=== PATIENT | female | born 1980 | race Caucasian/White ===

== ENCOUNTER 2020-02-23 16:17 | Emergency (ER) | payer OTHER ==
--- NOTE | 2020-02-23 16:47 | XRAY ---
Indication: Pain following fall. Comparison: None 3 view right knee demonstrates tiny medial condyle bone island and tiny suprapatellar soft tissue calcified granuloma. No other bony, articular, or soft tissue abnormalities.
--- NOTE | 2020-02-23 16:48 | ERPHSYRPT ---
- History of Present Illness Source: patient Exam Limitations: no limitations Patient Subjective Stated Complaint: pt was at work and fell and landed on her right knee causing pain when she twists it in any direction and it also "pops" with every step Triage Nursing Assessment: Pt was brought to the ER by her , chapin alissa, rates knee pain as 2/10, pulses normal, denies any other injuries Physician History: 39-year-old female here for right knee injury. Patient apparently had slipped on a wet surface and twisted her knee as well as landing on that knee as well. No other injuries. Did not fall completely or hit her head. Has twisted her knee in the past which occasionally give her some discomfort. Patient able to ambulate with some discomfort. Method of Injury: twisted Occurred: this morning Quality: constant Severity of Pain-Max: severe Severity of Pain-Current: moderate Lower Extremities Pain: knee: right Modifying Factors: Improves With: movement Associated Symptoms: No unable to bear weight Allergies/Adverse Reactions: No Known Drug Allergies Allergy (Verified 02/23/20 16:32) Home Medications: No Reportable Medications [No Reported Medications] 02/23/20 [History] Travel Risk - International Travel Have you traveled outside of the country in past 3 weeks: No - Coronavirus Screening Are you exhibiting any of the following symptoms?: No Close contact with a COVID-19 positive Pt in past 14-21 Days: No - Review of Systems Constitutional: No Fever, No Chills Eyes: No Symptoms Ears, Nose, & Throat: No Symptoms Respiratory: No Cough, No Dyspnea Cardiac: No Chest Pain, No Edema, No Syncope Abdominal/Gastrointestinal: No Abdominal Pain, No Nausea, No Vomiting, No Diarrhea Genitourinary Symptoms: No Dysuria Musculoskeletal: Injury, Joint Pain, No Back Pain, No Neck Pain Skin: No Rash Neurological: No Dizziness, No Focal Weakness, No Sensory Changes Psychological: No Symptoms Endocrine: No Symptoms All Other Systems: Reviewed and Negative - Past Medical History Endocrine Medical History: Hypothyroidism Musculoskeletal History: Fractures Psycho-Social History: Depression Female Reproductive Disorders: Endometriosis - Past Surgical History Past Surgical History: Yes Female Surgical History: Section - Social History Smoking Status: Current every day smoker Exposure to second hand smoke: Yes Drug Use: none Patient Lives Alone: No - Female History Hx Now: No - Nursing Vital Signs Nursing Vital Signs: Initial Vital Signs Temperature 98.3 F 02/23/20 16:23 Pulse Rate 84 02/23/20 16:23 Blood Pressure 139/90 02/23/20 16:23 O2 Sat by Pulse Oximetry 100 02/23/20 16:23 Pain Scale Pain Intensity 2 - Physical Exam General Appearance: no apparent distress, alert Eyes, Ears, Nose, Throat Exam: moist mucous membranes Neck Exam: non-tender, supple Cardiovascular/Respiratory Exam: chest non-tender, normal breath sounds, regular rate/rhythm, no respiratory distress Gastrointestinal/Abdominal Exam: non-tender, guarding Back Exam: normal inspection, No vertebral tenderness Knees Exam: right knee: pain (Lateral aspect of knee), soft tissue tenderness Neuro/Tendon Exam: normal sensation, normal motor functions Mental Status Exam: alert, oriented x 3, cooperative Skin Exam: normal color, warm, dry SpO2 Interpretation: normal SpO2: 100 - Course Nursing assessment & vital signs reviewed: Yes - Radiology Exams Right Knee X-ray Interpretation: Discussed w/ radiologist, Negative, No Fracture, No Subluxation Ordered Tests: Active Orders 24 hr Category Date Time Status Enrique Bandage Application -[facility] STAT Care 02/23/20 17:09 Ordered KNEE (3 VIEWS) Stat Exams 02/23/20 16:38 Completed - Progress Progress: improved Progress Note: 02/23/20 17:12 Exam fairly benign. There is some tenderness on the lateral aspect of knee. I do not see any deformity or joint effusion. We will x-ray right knee. Radiologist states no new or acute findings of fracture or dislocation. We will Enrique wrap after discussion with patient. She states that she is able to ambulate with very very mild discomfort on the lateral aspect of knee. Patient declines any pain medicine in the ER and also declined crutches as well. Advise follow-up with PCP. Counseled pt/family regarding: diagnosis, need for follow-up, rad results - Departure Departure Disposition: Home Clinical Impression: Right knee sprain Condition: Stable Critical Care Time: No Instructions: Knee Sprain (DC) Additional Instructions: Monitor symptoms closely. Rest. Ice. Enrique wrap or knee brace during the day. Elevation. Aleve or Motrin for pain. Weightbearing as tolerated. Follow-up with your PCP for recheck in a few days. Return to ER if worse. Forms: Work/School Release Form
[2020-02-23 17:19] VITALS: BP 122/77; PULSE 76; O2SAT 98
== END 2020-02-23 17:27 | disposition home or self-care (01) ==
LOC: ED 16:17
DX: S83.421A Sprain of lateral collateral ligament of right knee, initial encounter (principal); W01.0XXA Fall on same level from slipping, tripping and stumbling without subsequent striking against object, initial encounter
CPT/HCPCS: 73562; 99283

== ENCOUNTER 2020-09-10 23:15 | Emergency (ER) | payer MEDICAID, OTHER ==
[2020-09-10 23:32] VITALS: O2SAT 97
--- NOTE | 2020-09-11 00:05 | ERPHSYRPT ---
- History of Present Illness Time Seen by Provider: 09/11/20 00:00 Source: patient, family Exam Limitations: no limitations Patient Subjective Stated Complaint: pt states, "I woke up from sleep with a throbbing, sharp pain to the right side of my head, which felt like I was hit in the head with a baseball bat". Triage Nursing Assessment: pt c/o headache to rt side of head which woke her up from sleep. Pt states, "my head is throbbing, I feel like I've been hit in the head with a baseball bat". No nausea, vomiting, or loc. Physician History: pt had sharp sudden headache awakening from sleep- no hx of head trauma or blood thinners. had 2 relatives with brain aneurysms. discussed risk and benefit of head CT and pt wishes to proceed. no neuro findings on exam and normal mental status and pupils. Timing/Duration: today Quality: sharpness, stabbing, throbbing Head Pain Location: frontal, temporal Severity of Pain-Max: severe Severity of Pain-Current: moderate Recent Head Trauma: no recent headache/trauma, occasional headaches (migraine prior without workup) Associated Symptoms: denies symptoms Previous symptoms: different symptoms, no recent treatment Allergies/Adverse Reactions: No Known Drug Allergies Allergy (Verified 09/10/20 23:44) Home Medications: No Reportable Medications [No Reported Medications] 02/23/20 [History] Hx Tetanus, Diphtheria Vaccination/Date Given: Yes Hx Influenza Vaccination/Date Given: No Hx Pneumococcal Vaccination/Date Given: No Immunizations Up to Date: Yes Travel Risk - International Travel Have you traveled outside of the country in past 3 weeks: No - Coronavirus Screening Are you exhibiting any of the following symptoms?: No Close contact with a COVID-19 positive Pt in past 14-21 Days: No - Vaccine Status Have you recieved a Covid-19 vaccination: No - Review of Systems Constitutional: No Fever, No Chills Eyes: No Symptoms Ears, Nose, & Throat: No Symptoms Respiratory: No Cough, No Dyspnea Cardiac: No Chest Pain, No Edema, No Syncope Abdominal/Gastrointestinal: No Abdominal Pain, No Nausea, No Vomiting, No Diarrhea Genitourinary Symptoms: No Dysuria Musculoskeletal: No Back Pain, No Neck Pain Skin: No Rash Neurological: Headache, No Dizziness, No Focal Weakness, No Sensory Changes Psychological: No Symptoms Endocrine: No Symptoms Hematologic/Lymphatic: No Symptoms Immunological/Allergic: No Symptoms All Other Systems: Reviewed and Negative - Past Medical History Pertinent Past Medical History: Yes Neurological History: Migraines Endocrine Medical History: Hypothyroidism Musculoskeletal History: Fractures Psycho-Social History: Depression Female Reproductive Disorders: Endometriosis - Past Surgical History Past Surgical History: Yes Musculoskeletal: Orthopedic Surgery Female Surgical History: Section, Tubal Ligation - Social History Smoking Status: Current every day smoker How long have you smoked: 20 yrs Exposure to second hand smoke: Yes Drug Use: none Patient Lives Alone: No - Female History Hx Last Menstrual Period: 09/10/20 Hx Now: No - Nursing Vital Signs Nursing Vital Signs: Initial Vital Signs Temperature 98.2 F 09/10/20 23:29 Pulse Rate 79 09/10/20 23:29 Respiratory Rate 18 09/10/20 23:29 Blood Pressure 142/93 09/10/20 23:29 O2 Sat by Pulse Oximetry 97 09/10/20 23:29 Pain Scale Pain Intensity 10 - Physical Exam General Appearance: no apparent distress Eye Exam: PERRL/EOMI Ears, Nose, Throat Exam: normal ENT inspection, moist mucous membranes Neck Exam: normal inspection, supple, full range of motion, No meningismus Respiratory Exam: normal breath sounds, lungs clear Cardiovascular Exam: regular rate/rhythm, normal heart sounds Gastrointestinal/Abdominal Exam: soft, No tenderness, No distention Back Exam: normal inspection, normal range of motion Extremity Exam: normal inspection, normal range of motion Mental Status Exam: alert, oriented x 3, cooperative sledger Exam: normal speech, PERRL, No facial droop Coordination/Gait Exam: normal finger to nose, normal gait, normal cerebellar function Motor/Sensory Exam: no motor deficit, no sensory deficit, no pronator drift DTR Exam: bicep (R): 2+, bicep (L): 2+, tricep (R): 2+, tricep (L): 2+, knee (R): 2+, knee (L): 2+, ankle (R): 2+, ankle (L): 2+ Skin Exam: normal color, warm, dry, No rash SpO2 Interpretation: normal SpO2: 97 O2 Delivery: Room Air - Course Nursing assessment & vital signs reviewed: Yes - CT Exams Head CT Interpretation: Tele-radiologist Report, No/Intracranial Hemorrhag Ordered Tests: Active Orders 24 hr Category Date Time Status IV Insertion STAT Care 09/11/20 00:17 Active NPO (ED) STAT Care 09/11/20 00:10 Active HEAD W/WO CONTRAST [CT] Stat Exams 09/11/20 00:11 Taken CBC W DIFF Stat Lab 09/11/20 00:36 Completed CMP Stat Lab 09/11/20 00:36 Completed Erythrocyte Sedimentation Rate Stat Lab 09/11/20 00:36 Completed HCG QUALITATIVE,SERUM Stat Lab 09/11/20 00:36 Completed Medication Summary Discontinued Medications Generic Name Dose Route Start Last Admin Trade Name Vickey PRN Reason Stop Dose Admin Sodium Chloride 1,000 mls @ 999 mls/hr 09/11/20 00:17 09/11/20 00:39 Sodium Chloride 0.9% 1000 Ml IV 09/11/20 01:17 999 mls/hr .Q1H1M STA Administration Sodium Chloride Confirm 09/11/20 00:38 Sodium Chloride 0.9% 1000 Ml Administered 09/11/20 00:39 Dose 1,000 mls @ ud .ROUTE .[facility] Lab/Rad Data: Laboratory Result Diagrams 09/11/20 00:36 09/11/20 00:36 Laboratory Results 09/11/20 09/11/20 09/11/20 Range/Units 00:36 00:36 00:36 WBC 9.6 (4.0-10.5) K/mm3 RBC 3.98 L (4.1-5.4) M/mm3 Hgb 13.1 (12.0-16.0) gm/dl Hct 39.3 (35-47) % MCV 98.7 (78-100) fl MCH 32.9 H (26-32) pg MCHC 33.3 (32-36) g/dl RDW 12.5 (11.5-14.0) % Plt Count 223 (150-450) K/mm3 MPV 9.5 (7.5-11.0) fl Gran % 60.1 (36.0-66.0) % Eos # (Auto) 0.18 (0-0.5) Absolute Lymphs (auto) 2.70 (1.0-4.6) Absolute Monos (auto) 0.91 (0.0-1.3) Lymphocytes % 28.2 (24.0-44.0) % Monocytes % 9.5 (0.0-12.0) % Eosinophils % 1.9 (0.00-5.0) % Basophils % 0.3 (0.0-0.4) % Absolute Granulocytes 5.76 (1.4-6.9) Basophils # 0.03 (0-0.4) ESR 17 (0-20) mm/hr Sodium 136 L (137-145) mmol/L Potassium 3.4 L (3.5-5.1) mmol/L Chloride 104 (98-107) mmol/L Carbon Dioxide 26 (22-30) mmol/L Anion Gap 9.8 (5-15) MEQ/L BUN 9 (7-17) mg/dL Creatinine 0.54 (0.52-1.04) mg/dL Estimated GFR > 60.0 ML/MIN Glucose 114 H (74-106) mg/dL Calcium 8.6 (8.4-10.2) mg/dL Total Bilirubin 0.20 (0.2-1.3) mg/dL AST 20 (14-36) U/L ALT 16 (0-35) U/L Alkaline Phosphatase 67 (38-126) U/L Serum Total Protein 6.7 (6.3-8.2) g/dL Albumin 3.9 (3.5-5.0) g/dL Serum , Qual NEGATIVE (Negative) - Progress Progress: improved, re-examined Air Movement: good Progress Note: 09/11/20 02:17 pt symptoms resolved in ER. limitations of testing discussed and the need for furhter f/u with neurologist and potentially more imaging to completely rule out aneurysm and pt understands and wishes this as outpt and has the capacity to make this choice. Blood Culture(s) Obtained: No Antibiotics given: No Counseled pt/family regarding: lab results, diagnosis, need for follow-up, rad results - Departure Departure Disposition: Home Clinical Impression: Headache Condition: Good Critical Care Time: No Referrals: SHARON MOSCOSO [Primary Care Provider] - Instructions: Headache, Adult (DC), Migraines (DC) Additional Instructions: followup with your DrSarah for neurologist referral and additional imaging if they determine necessary. Also followup for blood pressure with your DrSarah Return meantime if not improving or additional symptoms or concerns.
[2020-09-11] MEDS ORDERED: Sodium Chloride 0.9% 1000 ML 1,000 ML IV STA (00:17)
[2020-09-11] MEDS ORDERED: Sodium Chloride 0.9% 1000 ML 1,000 ML ONE (00:38)
[2020-09-11 00:39] LABS: Absolute Neutrophil Ct (ANC) 5.76 (1.4-6.9); BASOPHIL % 0.3 % (0.0-0.4); Basophil (Absolute #) 0.03 (0-0.4); Eosinophil % 1.9 % (0.00-5.0); Eosinophil (Absolute #) 0.18 (0-0.5); Hematocrit 39.3 % (35-47); Hemoglobin 13.1 gm/dl (12.0-16.0); Lymphocytes % 28.2 % (24.0-44.0); Mean Cell Volume 98.7 fl (78-100); Mean Corpuscular Hemoglobin 32.9 pg (26-32); Mean Corpuscular Hgb Concent. 33.3 g/dl (32-36); Mean Platelet Volume 9.5 fl (7.5-11.0); Monocyte (Absolute #) 0.91 (0.0-1.3); Monocytes % 9.5 % (0.0-12.0); Neutrophil % 60.1 % (36.0-66.0); Platelet Count 223 K/mm3 (150-450); Red Blood Count 3.98 M/mm3 (4.1-5.4); Red Cell Distribution Width 12.5 % (11.5-14.0); White Blood Count 9.6 K/mm3 (4.0-10.5)
[2020-09-11 00:50] LABS: ALBUMIN 3.9 g/dL (3.5-5.0); ALKALINE PHOSPHATASE 67 U/L (38-126); ANION GAP 9.8 MEQ/L (5-15); BLOOD UREA NITROGEN 9 mg/dL (7-17); CHLORIDE 104 mmol/L (98-107); Calcium 8.6 mg/dL (8.4-10.2); Carbon Dioxide 26 mmol/L (22-30); Creatinine 1 0.54 mg/dL (0.52-1.04); EST GLOMERULAR FILTRATION RATE > 60.0 ML/MIN; Glucose 114 mg/dL (74-106); Potassium 3.4 mmol/L (3.5-5.1); SGOT/AST 20 U/L (14-36); SGPT/ALT 16 U/L (0-35); SODIUM 136 mmol/L (137-145); Total Protein 6.7 g/dL (6.3-8.2)
[2020-09-11 00:59] LABS: Erythrocyte Sedimentation Rate 17 mm/hr (0-20)
[2020-09-11 02:31] VITALS: BP 128/73; PULSE 61
--- NOTE | 2020-09-11 07:38 | XRAY ---
Indication: Right-sided headache. Multiple contiguous axial images obtained through the head prior to and following 60 cc Isovue 370 contrast as ordered. Comparison: None. Normal appearing brain parenchyma, ventricles, and bony calvarium. No abnormal enhancing intra-or extra-axial mass. Visualized [place] unremarkable. Visualized paranasal sinuses and mastoid air cells are clear. Impression: Normal CT head with and without contrast exam. Comment: Preliminary interpretation was made by [facility]. No critical discrepancy.
== END 2020-09-11 02:32 | disposition home or self-care (01) ==
LOC: ED 23:15
DX: R51.9 Headache, unspecified (principal)
CPT/HCPCS: 36000; 36415; 70470; 80053; 81025; 85025; 85652; 96360; 99284

== ENCOUNTER 2020-10-09 16:48 | Emergency (ER) | payer MEDICAID ==
[2020-10-09] MEDS ORDERED: XYLOCAINE 1% HCL 20 ML MDV IJ ONE (16:49)
[2020-10-09] MEDS ORDERED: solu-MEDROL 125 MG IM ONE (17:24)
--- NOTE | 2020-10-09 17:24 | ERPHSYRPT ---
- History of Present Illness Time Seen by Provider: 10/09/20 17:10 Source: patient, family Exam Limitations: no limitations Patient Subjective Stated Complaint: Patient states she has had productive cough x3 days clear sputum coughed up occasionally. States chest is sore from frequent harsh cough. Triage Nursing Assessment: Patient presents to ED with harsh hacking cough. States she has coughed up clear sputum and chest is sore from frequent cough. Afebrile at this time. Expiratoru wheezes and L lower lung coarseness. Physician History: This is a 40-year-old white female who smokes cigarettes daily and presents with chronic, intermittent cough for 3 days. It is productive for clear sputum. She does not have a fever. However, because she is coughing so often, she has a headache and it hurts her chest when she coughs. Patient has been using [id number] medications to help her symptoms but she is not improving. She has not had any nausea vomiting or diarrhea. She has not had chills. She has no abdominal pain. She has had similar symptoms in the past and she was diagnosed with bronchitis. Timing/Duration: day(s) (3) Cough Quality/Degree: mild, productive cough (Clear sputum) Possible Cause: occasional episodes, smoke exposure Modifying Factors: Improves With: coughing Associated Symptoms: chest pain/soreness (Coughing only), cough, headache (Secondary to coughing) Allergies/Adverse Reactions: No Known Drug Allergies Allergy (Verified 10/09/20 17:06) Hx Tetanus, Diphtheria Vaccination/Date Given: Yes Hx Influenza Vaccination/Date Given: No Hx Pneumococcal Vaccination/Date Given: No Travel Risk - International Travel Have you traveled outside of the country in past 3 weeks: No - Coronavirus Screening Are you exhibiting any of the following symptoms?: Yes Symptoms: Cough: New Onset, Shortness of Breath Close contact with a COVID-19 positive Pt in past 14-21 Days: No - Vaccine Status Have you recieved a Covid-19 vaccination: No - Review of Systems Constitutional: No Symptoms Eyes: No Symptoms Ears, Nose, & Throat: No Symptoms Respiratory: Cough Cardiac: No Symptoms Abdominal/Gastrointestinal: No Symptoms Genitourinary Symptoms: No Symptoms Musculoskeletal: No Symptoms Skin: No Symptoms Neurological: No Symptoms Psychological: No Symptoms Endocrine: No Symptoms Hematologic/Lymphatic: No Symptoms Immunological/Allergic: No Symptoms All Other Systems: Reviewed and Negative - Past Medical History Pertinent Past Medical History: Yes Neurological History: Migraines Endocrine Medical History: Hypothyroidism Musculoskeletal History: Fractures Psycho-Social History: No Pertinent History Female Reproductive Disorders: Endometriosis - Past Surgical History Past Surgical History: Yes Musculoskeletal: Orthopedic Surgery Female Surgical History: Section, Tubal Ligation - Social History Smoking Status: Current every day smoker How long have you smoked: 20 yrs Exposure to second hand smoke: Yes Drug Use: none Patient Lives Alone: No - Female History Hx Last Menstrual Period: 10/09/20 Hx Now: No - Nursing Vital Signs Nursing Vital Signs: Initial Vital Signs Temperature 98.3 F 10/09/20 16:49 Pulse Rate 90 10/09/20 16:49 Respiratory Rate 18 10/09/20 16:49 Blood Pressure 145/96 10/09/20 16:49 O2 Sat by Pulse Oximetry 98 10/09/20 16:49 Pain Scale Pain Intensity 5 - Physical Exam General Appearance: no apparent distress, alert, anxiety Eye Exam: PERRL/EOMI, eyes nml inspection Ears, Nose, Throat Exam: normal ENT inspection, moist mucous membranes Neck Exam: normal inspection, non-tender, supple, full range of motion Respiratory Exam: airway intact, wheezing (Mild expiratory bibasilar), No chest tenderness, No respiratory distress Cardiovascular Exam: regular rate/rhythm, normal heart sounds, normal peripheral pulses Gastrointestinal/Abdomen Exam: soft, normal bowel sounds, No tenderness Pelvic Exam: not done Rectal Exam: not done Back Exam: normal inspection, normal range of motion, No CVA tenderness, No vertebral tenderness Extremity Exam: normal inspection, normal range of motion, No pelvis stable Neurologic Exam: alert, oriented x 3, cooperative, coper hand II-XII nml as tested, normal mood/affect, nml cerebellar function, nml station & gait, sensation nml Skin Exam: normal color, warm, dry Lymphatic Exam: No adenopathy SpO2 Interpretation: normal SpO2: 98 O2 Delivery: Room Air - Course Nursing assessment & vital signs reviewed: Yes Ordered Tests: Medication Summary Discontinued Medications Generic Name Dose Route Start Last Admin Trade Name Freq PRN Reason Stop Dose Admin Ceftriaxone Sodium 1,000 mg 10/09/20 17:25 10/09/20 17:31 Rocephin 1000 Mg Inj IM 10/09/20 17:26 1,000 mg STAT ONE Administration Ceftriaxone Sodium Confirm 10/09/20 17:28 Rocephin 1000 Mg Inj Administered 10/09/20 17:29 Dose 1,000 mg .ROUTE .STK-MED ONE Methylprednisolone Sodium Succinate 125 mg 10/09/20 17:24 10/09/20 17:31 Solu-Medrol 125 Mg IM 10/09/20 17:25 125 mg STAT ONE Administration Methylprednisolone Sodium Succinate Confirm 10/09/20 17:28 Solu-Medrol 125 Mg Administered 10/09/20 17:29 Dose 125 mg .ROUTE .STK-MED ONE - Progress Progress: re-examined, unchanged Air Movement: good Progress Note: 10/09/20 17:32 Medical decision making: I did offer the patient the option of performing a chest x-ray. She has had similar symptoms in the past and the diagnosis was bronchitis. Even if her chest x-ray is negative I would be treating her similarly as if she had a walking pneumonia which will also cover symptoms of upper respiratory infection/bronchitis. She declines the chest x-ray at this time. Blood Culture(s) Obtained: No Antibiotics given: Yes Counseled pt/family regarding: diagnosis, need for follow-up - Departure Departure Disposition: Home Clinical Impression: Upper respiratory infection Condition: Stable Critical Care Time: No Referrals: SHARON MOSCOSO [Primary Care Provider] - Additional Instructions: Drink plenty of fluids. Avoid smoke exposure of any kind. Follow-up with your primary care physician for persistent symptoms. Take your medications as prescr ibed. Prescriptions: Hydrocodone/Acetaminophen [Hydrocodone-Acetamn 7.5-325/15] 10 ml PO Q8H PRN PRN #120 solution MDD 30 ml PRN Reason: Cough Prednisone 10 mg [Deltasone 10 mg] 10 mg PO TID #12 tablet Albuterol 8 gm Mdi Hfa [Ventolin Hfa MDI] 8 gm IH Q4H #1 hfa.aer.ad Azithromycin 250 mg [Zithromax 250 MG TABLET] 250 mg PO ZPACK #6 tablet
[2020-10-09] MEDS ORDERED: Rocephin 1000 MG INJ IM ONE (17:25)
[2020-10-09] MEDS ORDERED: solu-MEDROL 125 MG ONE (17:28)
[2020-10-09] MEDS ORDERED: Rocephin 1000 MG INJ ONE (17:28)
[2020-10-09 18:16] VITALS: BP 138/94; PULSE 69
[2020-10-09 18:18] VITALS: O2SAT 98
== END 2020-10-09 18:40 | disposition home or self-care (01) ==
LOC: ED 16:48
DX: J06.9 Acute upper respiratory infection, unspecified (principal)
CPT/HCPCS: 96372; 99284; J0696; J2930